=== PATIENT | male | born 1965 | race Caucasian/White ===

== ENCOUNTER 2022-11-21 12:51 | Inpatient (IN) | payer MEDICAID ==
[~2022-11-21] VITALS: Ht 170.2 cm; Wt 62.2 kg
[2022-11-21 13:45] LABS: Basophils # (auto) 0.1 10 ^3/uL (0-0.2); Basophils % (auto) 0.8 % (0.0-2.0); Eosinophils # (auto) 0.3 10 ^3/uL (0-0.8); Hemoglobin 9.5 g/dL (13.5-17.5); Monocytes # (auto) 0.4 10 ^3/uL (0-1.3); Nucleated Red Blood Cells % 0.1 %
[2022-11-21] MEDS ORDERED: ONDANSETRON HCL 4 MG/2 ML VIAL IV ONE (13:45)
[2022-11-21 13:46] LABS: Eosinophils % (auto) 4.4 % (0.0-7.0); Lymphocytes # (auto) 1.1 10 ^3/uL (0.4-5.4); Lymphocytes % (auto) 17.5 % (10.0-50.0); Mean Corpuscular Hgb Conc. 31.5 g/dL (32.0-36.0); Mean Corpuscular Volume 82.6 fL (80.0-100.0); Monocytes % (auto) 5.7 % (0.0-12.0); Neutrophils # (auto) 4.6 10 ^3/uL (1.6-8.6); Neutrophils % (auto) 71.6 % (37.0-80.0); Red Blood Cells 3.64 10^6/uL (4.5-5.90); Red Cell Distribution Width 18.9 % (11.8-14.3); White Blood Cell 6.4 10^3/uL (4.4-10.8)
[2022-11-21 14:10] LABS: Alanine Aminotransferase 18 U/L (7-40); Albumin 3.6 g/dL (3.2-4.8); Alkaline Phosphatase 109 U/L (46-116); Anion Gap 6.8 (5-15); Aspartate Aminotransferase 19 U/L (13-40); BUN/Creatinine Ratio 6.8 (10.0-20.0); Bilirubin, Total 0.4 mg/dL (0.2-1.0); Blood Urea Nitrogen 27 mg/dL (9-23); Calcium 8.4 mg/dL (8.5-10.1); Carbon Dioxide 33.2 mmol/L (20-30); Chloride 98 mmol/L (98-107); Glucose 166 mg/dL (74-106); Potassium 3.5 mmol/L (3.5-5.1); Sodium 138 mmol/L (136-145); Total Protein 7.6 g/dL (5.7-8.2)
[2022-11-21] MEDS ORDERED: ACETAMINOPHEN 325 MG TAB PO PRN (16:15)
[2022-11-21] MEDS ORDERED: HYDROcodone-ACET 5/325MG TAB PO PRN (16:15)
[2022-11-21] MEDS ORDERED: MORPHINE SULFATE INJ 2 MG/ml SYRG IV PRN (16:30)
[2022-11-21] MEDS ORDERED: DEXTROSE (50%) 50ML SYRG IV PRN (16:30)
[2022-11-21] MEDS ORDERED: NITROGLYCERIN 0.4 MG SL TAB SL PRN (16:30)
[2022-11-21] MEDS: InsuLIN REG 1unit/0.01ml Soln (100units/ml) SC SCH ×2 (19:08→22:32)
[2022-11-21] MEDS: ACCU-CHEK COMFORT CURVE STRIP VI SCH ×2 (19:08→22:32)
[2022-11-21] MEDS: SEVELAMER 800 MG TAB PO SCH (19:10)
[2022-11-21 19:55] VITALS: PULSE 68; RESP 13; O2SAT 96
[2022-11-21] MEDS: SODIUM CHLOR 0.9% PF (SALINE LOCK) 10ML VIAL/SYR IV SCH (22:30)
[2022-11-21] MEDS: hydrALAZINE HCL 20 MG/ML VL IV PRN (22:33)
[2022-11-22] MEDS: hydrALAZINE HCL 20 MG/ML VL IV PRN ×3 (02:34→21:02)
[2022-11-22] MEDS: SODIUM CHLOR 0.9% PF (SALINE LOCK) 10ML VIAL/SYR IV SCH ×3 (05:20→21:10)
[2022-11-22] MEDS: ACCU-CHEK COMFORT CURVE STRIP VI SCH ×4 (06:26→21:42)
[2022-11-22] MEDS: InsuLIN REG 1unit/0.01ml Soln (100units/ml) SC SCH ×4 (06:27→21:43)
[2022-11-22 06:41] LABS: Alanine Aminotransferase 18 U/L (7-40); Alkaline Phosphatase 110 U/L (46-116); Aspartate Aminotransferase 23 U/L (13-40); Blood Urea Nitrogen 33 mg/dL (9-23); Calcium 8.6 mg/dL (8.5-10.1); Chloride 100 mmol/L (98-107); Glucose 78 mg/dL (74-106); Potassium 3.5 mmol/L (3.5-5.1); Sodium 139 mmol/L (136-145)
[2022-11-22 06:42] LABS: Albumin 3.5 g/dL (3.2-4.8); Bilirubin, Total 0.3 mg/dL (0.2-1.0); Total Protein 7.4 g/dL (5.7-8.2)
[2022-11-22 07:16] LABS: Basophils # (auto) 0.1 10 ^3/uL (0-0.2); Eosinophils # (auto) 0.3 10 ^3/uL (0-0.8)
[2022-11-22 07:44] LABS: Basophils % (auto) 1.2 % (0.0-2.0); Eosinophils % (auto) 4.2 % (0.0-7.0); Hematocrit 27.8 % (41.0-53.0); Lymphocytes # (auto) 1.1 10 ^3/uL (0.4-5.4); Lymphocytes % (auto) 17.3 % (10.0-50.0); Mean Corpuscular Hemoglobin 26.6 pg (28.0-32.0); Mean Corpuscular Hgb Conc. 32.4 g/dL (32.0-36.0); Mean Corpuscular Volume 82.1 fL (80.0-100.0); Monocytes # (auto) 0.6 10 ^3/uL (0-1.3); Monocytes % (auto) 8.6 % (0.0-12.0); Neutrophils # (auto) 4.5 10 ^3/uL (1.6-8.6); Neutrophils % (auto) 68.7 % (37.0-80.0); Red Blood Cells 3.38 10^6/uL (4.5-5.90); Red Cell Distribution Width 19.4 % (11.8-14.3); White Blood Cell 6.5 10^3/uL (4.4-10.8)
[2022-11-22 08:00] VITALS: PULSE 6; RESP 12; O2SAT 100
[2022-11-22] MEDS: ONDANSETRON HCL 4 MG/2 ML VIAL IV PRN (08:43)
[2022-11-22] MEDS: B-COMPLEX W/ C & FOLIC ACID(NEPHROVITE TAB) PO SCH (08:44)
[2022-11-22] MEDS: SEVELAMER 800 MG TAB PO SCH ×3 (08:44→18:17)
[2022-11-22] MEDS: BUMETANIDE 1 MG TAB PO SCH ×2 (10:18→21:09)
[2022-11-22 17:05] VITALS: PULSE 67; RESP 18; O2SAT 98
[2022-11-22] MEDS ORDERED: CALC0.25 PO (17:42)
[2022-11-22] MEDS ORDERED: INSU100I4 SC (17:42)
[2022-11-22] MEDS ORDERED: LOSA50TA46 PO (17:42)
[2022-11-22] MEDS ORDERED: ERGO1CAP12 PO (17:42)
[2022-11-22] MEDS ORDERED: FURO80TA3 PO (17:42)
[2022-11-22] MEDS ORDERED: LABE100T4 PO (17:42)
[2022-11-22] MEDS ORDERED: SEVE800T10 PO (17:42)
[2022-11-22] MEDS ORDERED: ATOR40TA52 PO (17:42)
[2022-11-22] MEDS ORDERED: NIFE1TAB30 PO (17:42)
[2022-11-22] MEDS ORDERED: INSU100I70 SC (17:42)
[2022-11-22 20:00] VITALS: PULSE 67; PULSE 69; RESP 18; O2SAT 98
[2022-11-22 22:00] VITALS: BP 159/74; PULSE 67; RESP 18; TEMP 98.5; O2SAT 97
[2022-11-23] VITALS (7 sets, daily range): BP systolic 139–170; BP diastolic 66–79; PULSE 59–76; RESP 14–19; TEMP 97.6–98.9; O2SAT 95–100
[2022-11-23] MEDS: hydrALAZINE HCL 20 MG/ML VL IV PRN ×2 (03:52→19:10)
[2022-11-23] MEDS: ONDANSETRON HCL 4 MG/2 ML VIAL IV PRN ×2 (03:59→09:37)
[2022-11-23] MEDS: InsuLIN REG 1unit/0.01ml Soln (100units/ml) SC SCH ×4 (06:16→21:25)
[2022-11-23] MEDS: SODIUM CHLOR 0.9% PF (SALINE LOCK) 10ML VIAL/SYR IV SCH ×3 (06:16→21:25)
[2022-11-23] MEDS: ACCU-CHEK COMFORT CURVE STRIP VI SCH ×4 (06:17→21:25)
[2022-11-23 06:28] LABS: Alanine Aminotransferase 16 U/L (7-40); Albumin 3.2 g/dL (3.2-4.8); Alkaline Phosphatase 103 U/L (46-116); Aspartate Aminotransferase 18 U/L (13-40); BUN/Creatinine Ratio 7.3 (10.0-20.0); Bilirubin, Total 0.3 mg/dL (0.2-1.0); Blood Urea Nitrogen 40 mg/dL (9-23); Calcium 8.3 mg/dL (8.5-10.1); Chloride 98 mmol/L (98-107); Potassium 3.5 mmol/L (3.5-5.1); Sodium 136 mmol/L (136-145); Total Protein 6.9 g/dL (5.7-8.2)
[2022-11-23 06:33] LABS: Glucose 190 mg/dL (74-106)
[2022-11-23] MEDS ORDERED: SODIUM CHL 0.9% 1000 ML BAG XX ONE (07:00)
[2022-11-23] MEDS ORDERED: LACO100T3 PO (08:30)
[2022-11-23] MEDS: B-COMPLEX W/ C & FOLIC ACID(NEPHROVITE TAB) PO SCH (09:37)
[2022-11-23] MEDS: BUMETANIDE 1 MG TAB PO SCH ×2 (09:38→21:24)
[2022-11-23] MEDS: PANTOPRAZOLE 40 MG/10 ML VIAL INJ IV SCH (09:38)
[2022-11-23] MEDS: SEVELAMER 800 MG TAB PO SCH ×3 (09:38→18:17)
[2022-11-23 13:42] LABS: INR 1.06 (0.9-1.15); Partial Thromboplastin Time 26.6 SEC (24.5-34.5); Prothrombin Time 11.1 sec (9.3-11.8)
[2022-11-23] MEDS ORDERED: MIDAZOLAM HCL 5 MG/ML-1ML VIAL ONE (14:39)
[2022-11-23] MEDS ORDERED: SODIUM CHLORIDE LOCK 10 ML ONE (14:39)
[2022-11-23] MEDS ORDERED: LIDOCAINE VISCOUS 2% 15ML UD ONE (14:39)
[2022-11-23] MEDS ORDERED: fentaNYL CITRATE 100 MCG/2 ML VL ONE (14:40)
[2022-11-23] MEDS: diphenhdrAMINE HCL 50 MG/1 ML VL ONE ×2 (16:53→16:56)
[2022-11-23] MEDS ORDERED: METOCLOPRAMIDE HCL 5MG/ml INJ 2ml VIAL IV PRN (17:15)
[2022-11-24] VITALS (7 sets, daily range): BP systolic 139–180; BP diastolic 61–86; PULSE 74–77; RESP 16; TEMP 97.9–98.5; O2SAT 94–98
[2022-11-24] MEDS: hydrALAZINE HCL 20 MG/ML VL IV PRN ×2 (04:03→12:26)
[2022-11-24] MEDS: SODIUM CHLOR 0.9% PF (SALINE LOCK) 10ML VIAL/SYR IV SCH ×2 (06:28→17:31)
[2022-11-24] MEDS: ACCU-CHEK COMFORT CURVE STRIP VI SCH ×3 (06:29→17:29)
[2022-11-24] MEDS: InsuLIN REG 1unit/0.01ml Soln (100units/ml) SC SCH ×3 (06:29→17:33)
[2022-11-24] MEDS: SEVELAMER 800 MG TAB PO SCH ×3 (08:00→17:31)
[2022-11-24] MEDS: B-COMPLEX W/ C & FOLIC ACID(NEPHROVITE TAB) PO SCH (10:00)
[2022-11-24] MEDS: BUMETANIDE 1 MG TAB PO SCH (10:00)
[2022-11-24] MEDS: PANTOPRAZOLE 40 MG/10 ML VIAL INJ IV SCH (10:00)
[2022-11-24] MEDS ORDERED: SUCR1TAB22 OR (17:43)
[2022-11-24] MEDS ORDERED: PANT40TA2 PO (17:43)
[2022-11-24] MEDS ORDERED: ZOFR4T PO (17:45)
== END 2022-11-24 19:10 | disposition home or self-care (01) | DRG 241 ==
LOC: ER 12:51 → TELE 16:26 → TELE-WESTW 11-22 16:32
PROVIDERS: ADMIT Nurse Practitioner Family; ATTEND Nurse Practitioner Acute Care
PROC: 5A1D70Z Performance of Urinary Filtration, Intermittent, Less than 6 Hours Per Day (ICD-10-PCS; 2022-11-22)
PROC: 0DB68ZX Excision of Stomach, Via Natural or Artificial Opening Endoscopic, Diagnostic (ICD-10-PCS; 2022-11-23)
PROC: 0DB98ZX Excision of Duodenum, Via Natural or Artificial Opening Endoscopic, Diagnostic (ICD-10-PCS; principal; 2022-11-23 16:46)
DX: K29.70 Gastritis, unspecified, without bleeding (principal); I12.0 Hypertensive chronic kidney disease with stage 5 chronic kidney disease or end stage renal disease; E11.22 Type 2 diabetes mellitus with diabetic chronic kidney disease; D63.8 Anemia in other chronic diseases classified elsewhere; K44.9 Diaphragmatic hernia without obstruction or gangrene; E11.43 Type 2 diabetes mellitus with diabetic autonomic (poly)neuropathy; K31.84 Gastroparesis; N18.6 End stage renal disease; E11.65 Type 2 diabetes mellitus with hyperglycemia; Z79.899 Other long term (current) drug therapy; Z87.11 Personal history of peptic ulcer disease; Z99.2 Dependence on renal dialysis
CPT/HCPCS: 36415; 43239; 70450; 71045; 74176; 80053; 82962; 83036; 85025; 85610; 85730; 86850; 86900; 86901; 87340; 90935; 96374; C9113; G0378; J1642; J1815; J2250; J2405

== ENCOUNTER 2023-03-30 11:36 | Inpatient (IN) | payer MEDICAID ==
[~2023-03-30] VITALS: Ht 170.2 cm; Wt 58.0 kg
[~2023-03-30 11:36] MED LIST: ATOR40TA52 PO; CALC0.25 PO; ERGO1CAP12 PO; FURO80TA3 PO; INSU100I4 SC; INSU100I70 SC; LABE100T4 PO; LACO100T3 PO; LOSA50TA46 PO; NIFE1TAB30 PO; PANT40TA2 PO; SEVE800T10 PO; SUCR1TAB22 OR; ZOFR4T PO
[2023-03-30 12:16] LABS: Basophils # (auto) 0.1 10 ^3/uL (0-0.2); Basophils % (auto) 0.4 % (0.0-2.0); Eosinophils # (auto) 0.1 10 ^3/uL (0-0.8); Eosinophils % (auto) 0.4 % (0.0-7.0); Hemoglobin 14.5 g/dL (13.5-17.5); Lymphocytes # (auto) 1.5 10 ^3/uL (0.4-5.4); Lymphocytes % (auto) 9.5 % (10.0-50.0); Mean Corpuscular Hemoglobin 28.1 pg (28.0-32.0); Mean Corpuscular Hgb Conc. 32.2 g/dL (32.0-36.0); Mean Corpuscular Volume 87.3 fL (80.0-100.0); Monocytes # (auto) 1.1 10 ^3/uL (0-1.3); Monocytes % (auto) 7.4 % (0.0-12.0); Neutrophils # (auto) 12.6 10 ^3/uL (1.6-8.6); Neutrophils % (auto) 82.3 % (37.0-80.0); Nucleated Red Blood Cells % 0.1 %; Red Blood Cells 5.15 10^6/uL (4.5-5.90); Red Cell Distribution Width 14.8 % (11.8-14.3); White Blood Cell 15.3 10^3/uL (4.4-10.8)
[2023-03-30 12:30] LABS: Chloride 94 mmol/L (98-107); Potassium 2.9 mmol/L (3.5-5.1); Sodium 133 mmol/L (136-145)
[2023-03-30 12:31] LABS: Anion Gap 15 (5-15); Carbon Dioxide 24 mmol/L (20-30)
[2023-03-30 12:32] LABS: Calcium 8.4 mg/dL (8.7-10.4)
[2023-03-30 12:33] VITALS: O2SAT 95
[2023-03-30 12:36] LABS: Glucose 179 mg/dL (74-106)
[2023-03-30 12:37] LABS: BUN/Creatinine Ratio 9.6 (10.0-20.0); Blood Urea Nitrogen 39 mg/dL (9-23); Lipase 26 U/L (12-53)
[2023-03-30] MEDS ORDERED: MORPHINE SULFATE INJ 2 MG/ml SYRG IV PRN (12:45)
[2023-03-30] MEDS ORDERED: ONDANSETRON HCL 4 MG/2 ML VIAL IV PRN (12:45)
[2023-03-30] MEDS ORDERED: metroNIDAZOLE 500MG/100ML 100 ML IV ONE (12:45)
[2023-03-30] MEDS ORDERED: POTASSIUM EFFERVESENT TAB 25 MEQ PO ONE (12:45)
[2023-03-30] MEDS ORDERED: NITROGLYCERIN 0.4 MG SL TAB SL PRN (12:45)
[2023-03-30] MEDS ORDERED: DEXTROSE (50%) 50ML SYRG IV PRN (12:45)
[2023-03-30] MEDS ORDERED: PANTOPRAZOLE 40 MG/10 ML VIAL INJ IV ONE (13:00)
[2023-03-30] MEDS ORDERED: PIPERACILLIN-TAZOB 2.25GM 50 ML IV ONE (13:00)
[2023-03-30] MEDS ORDERED: METOCLOPRAMIDE HCL 5MG/ml INJ 2ml VIAL IV PRN (13:00)
[2023-03-30] MEDS ORDERED: DOCUSATE SOD 100 MG CAP PO ONE (13:00)
[2023-03-30] MEDS ORDERED: LACTULOSE 20Gm/30ML SOLN PO ONE (13:00)
[2023-03-30] MEDS: PIPERACILLIN-TAZOB 2.25GM 50 ML IV SCH (13:34)
[2023-03-30] MEDS: metroNIDAZOLE 500MG/100ML 100 ML IV SCH ×2 (13:34→21:05)
[2023-03-30] MEDS: InsuLIN REG 1unit/0.01ml Soln (100units/ml) SC SCH ×2 (16:27→23:01)
[2023-03-30] MEDS: ACCU-CHEK COMFORT CURVE STRIP VI SCH ×2 (16:27→22:48)
[2023-03-30] MEDS: SUCRALFATE 1 GM TAB PO SCH ×2 (18:05→23:01)
[2023-03-30] MEDS: SEVELAMER 800 MG TAB PO SCH (18:05)
[2023-03-30 20:00] VITALS: PULSE 93; RESP 15; O2SAT 95
[2023-03-30] MEDS: LACOSAMIDE 50 MG TAB PO SCH (23:01)
[2023-03-30] MEDS: DOCUSATE SOD 100 MG CAP PO SCH (23:02)
[2023-03-30] MEDS: ATORVASTATIN 20 MG TAB PO SCH (23:02)
[2023-03-30] MEDS: LOSARTAN POTASSIUM 50 MG TAB PO SCH (23:03)
[2023-03-30] MEDS: LABETALOL HCL 200 MG TAB PO SCH (23:04)
[2023-03-31] MEDS: PIPERACILLIN-TAZOB 2.25GM 50 ML IV SCH ×2 (01:21→13:47)
[2023-03-31] MEDS: metroNIDAZOLE 500MG/100ML 100 ML IV SCH ×3 (04:59→21:14)
[2023-03-31 06:13] LABS: Basophils # (auto) 0 10 ^3/uL (0-0.2); Basophils % (auto) 0.3 % (0.0-2.0); Eosinophils # (auto) 0.1 10 ^3/uL (0-0.8); Eosinophils % (auto) 0.4 % (0.0-7.0); Hematocrit 42.3 % (41.0-53.0); Hemoglobin 13.3 g/dL (13.5-17.5); Lymphocytes # (auto) 1.7 10 ^3/uL (0.4-5.4); Lymphocytes % (auto) 11.7 % (10.0-50.0); Mean Corpuscular Hemoglobin 27.8 pg (28.0-32.0); Mean Corpuscular Hgb Conc. 31.5 g/dL (32.0-36.0); Mean Corpuscular Volume 88.2 fL (80.0-100.0); Monocytes # (auto) 1.2 10 ^3/uL (0-1.3); Neutrophils # (auto) 11.6 10 ^3/uL (1.6-8.6); Neutrophils % (auto) 79.6 % (37.0-80.0); Nucleated Red Blood Cells % 0.2 %; Red Cell Distribution Width 14.9 % (11.8-14.3); White Blood Cell 14.6 10^3/uL (4.4-10.8)
[2023-03-31 06:20] LABS: Alanine Aminotransferase 11 U/L (7-40); Albumin 3.5 g/dL (3.2-4.8); Alkaline Phosphatase 82 U/L (46-116); Anion Gap 15 (5-15); Aspartate Aminotransferase 21 U/L (13-40); BUN/Creatinine Ratio 6.4 (10.0-20.0); Bilirubin, Total 0.5 mg/dL (0.2-1.0); Blood Urea Nitrogen 38 mg/dL (9-23); Calcium 8.4 mg/dL (8.7-10.4); Carbon Dioxide 27 mmol/L (20-30); Chloride 93 mmol/L (98-107); Glucose 156 mg/dL (74-106); Sodium 135 mmol/L (136-145)
[2023-03-31 06:21] LABS: Total Protein 7.2 g/dL (5.7-8.2)
[2023-03-31] MEDS: InsuLIN REG 1unit/0.01ml Soln (100units/ml) SC SCH ×4 (06:31→22:23)
[2023-03-31] MEDS: ACCU-CHEK COMFORT CURVE STRIP VI SCH ×4 (06:31→22:18)
[2023-03-31] MEDS: SUCRALFATE 1 GM TAB PO SCH ×4 (06:35→22:24)
[2023-03-31 07:26] VITALS: PULSE 78; RESP 14; O2SAT 96
[2023-03-31] MEDS: SEVELAMER 800 MG TAB PO SCH ×3 (08:33→18:34)
[2023-03-31] MEDS ORDERED: NIFEdipine ER 30 MG TAB PO SCH (10:00)
[2023-03-31] MEDS ORDERED: PANTOPRAZOLE 40 MG TAB PO SCH (10:00)
[2023-03-31] MEDS ORDERED: ERGOCALCIFEROL 50,000 UNIT(1.25MG) CAP PO SCH ×2 (10:00→14:00)
[2023-03-31] MEDS: DOCUSATE SOD 100 MG CAP PO SCH (10:27)
[2023-03-31] MEDS: PANTOPRAZOLE 40 MG/10 ML VIAL INJ IV SCH (10:27)
[2023-03-31] MEDS: LABETALOL HCL 200 MG TAB PO SCH ×2 (10:30→22:23)
[2023-03-31] MEDS: LOSARTAN POTASSIUM 50 MG TAB PO SCH (10:30)
[2023-03-31] MEDS: CALCITRIOL 0.25 MCG CAP PO SCH (10:31)
[2023-03-31] MEDS: FUROSEMIDE 40 MG TAB PO SCH (10:31)
[2023-03-31] MEDS: LACOSAMIDE 50 MG TAB PO SCH ×2 (10:32→22:23)
[2023-03-31] MEDS ORDERED: POTASSIUM EFFERVESENT TAB 25 MEQ PO ONE (11:45)
[2023-03-31 19:30] VITALS: PULSE 78; RESP 20; O2SAT 95
[2023-03-31] MEDS: ONDANSETRON HCL 4 MG/2 ML VIAL IV PRN (20:07)
[2023-03-31] MEDS: HYDROcodone-ACET 5/325MG TAB PO PRN (21:28)
[2023-03-31] MEDS: METOCLOPRAMIDE HCL 10 MG TAB PO SCH (21:28)
[2023-03-31] MEDS: ATORVASTATIN 20 MG TAB PO SCH (22:23)
[2023-03-31] MEDS: SENNA 8.6 MG TAB PO SCH (22:23)
[2023-03-31 22:42] LABS: COVID19 ANTIGEN SOFIA FIA NEGATIVE (NEGATIVE); Rapid Influenza A Negative (Negative); Rapid Influenza B Negative (Negative)
[2023-03-31 22:44] LABS: Respiratory Syncytial Virus Ag Negative
[2023-03-31 23:00] VITALS: PULSE 84
[2023-03-31 23:31] VITALS: BP 116/60; PULSE 77; RESP 18; TEMP 98.2; O2SAT 94
[2023-03-31 23:51] VITALS: BP 116/60; PULSE 77; RESP 18; TEMP 98.2; O2SAT 94
[2023-04-01] VITALS (8 sets, daily range): BP systolic 90–112; BP diastolic 45–63; PULSE 72–88; RESP 16–18; TEMP 97.7–98.8; O2SAT 94–100
[2023-04-01] MEDS: PIPERACILLIN-TAZOB 2.25GM 50 ML IV SCH ×2 (01:02→13:02)
[2023-04-01 05:03] LABS: Basophils # (auto) 0.1 10 ^3/uL (0-0.2); Basophils % (auto) 0.8 % (0.0-2.0); Eosinophils # (auto) 0.2 10 ^3/uL (0-0.8); Eosinophils % (auto) 2.7 % (0.0-7.0); Hematocrit 37.3 % (41.0-53.0); Hemoglobin 12.4 g/dL (13.5-17.5); Lymphocytes # (auto) 1.7 10 ^3/uL (0.4-5.4); Lymphocytes % (auto) 18.7 % (10.0-50.0); Mean Corpuscular Hemoglobin 29.2 pg (28.0-32.0); Mean Corpuscular Hgb Conc. 33.1 g/dL (32.0-36.0); Mean Corpuscular Volume 88.1 fL (80.0-100.0); Monocytes # (auto) 0.9 10 ^3/uL (0-1.3); Monocytes % (auto) 9.5 % (0.0-12.0); Neutrophils # (auto) 6.2 10 ^3/uL (1.6-8.6); Neutrophils % (auto) 68.3 % (37.0-80.0); Nucleated Red Blood Cells % 0.1 %; Red Blood Cells 4.23 10^6/uL (4.5-5.90); Red Cell Distribution Width 14.7 % (11.8-14.3)
[2023-04-01] MEDS: metroNIDAZOLE 500MG/100ML 100 ML IV SCH (05:09)
[2023-04-01 05:13] LABS: Anion Gap 16 (5-15); Carbon Dioxide 27 mmol/L (20-30); Chloride 93 mmol/L (98-107); Potassium 2.8 mmol/L (3.5-5.1); Sodium 136 mmol/L (136-145)
[2023-04-01 05:14] LABS: Calcium 8.1 mg/dL (8.7-10.4)
[2023-04-01 05:19] LABS: BUN/Creatinine Ratio 6.8 (10.0-20.0); Glucose 110 mg/dL (74-106)
[2023-04-01 05:20] LABS: Lipase 29 U/L (12-53)
[2023-04-01 05:25] LABS: Blood Urea Nitrogen 56 mg/dL (9-23)
[2023-04-01] MEDS: SUCRALFATE 1 GM TAB PO SCH ×4 (06:02→22:41)
[2023-04-01] MEDS: METOCLOPRAMIDE HCL 10 MG TAB PO SCH ×3 (06:02→22:41)
[2023-04-01] MEDS: InsuLIN REG 1unit/0.01ml Soln (100units/ml) SC SCH ×4 (06:05→22:00)
[2023-04-01] MEDS: ACCU-CHEK COMFORT CURVE STRIP VI SCH ×4 (06:05→21:39)
[2023-04-01] MEDS ORDERED: POTASSIUM EFFERVESENT TAB 25 MEQ PO ONE (07:15)
[2023-04-01] MEDS ORDERED: POTASSIUM CHL 20MEQ/100ML 100 ML IV ONE (07:15)
[2023-04-01] MEDS: SEVELAMER 800 MG TAB PO SCH ×3 (09:08→18:22)
[2023-04-01] MEDS: CALCITRIOL 0.25 MCG CAP PO SCH (09:21)
[2023-04-01] MEDS: SENNA 8.6 MG TAB PO SCH ×2 (09:21→21:39)
[2023-04-01] MEDS: FUROSEMIDE 40 MG TAB PO SCH (09:21)
[2023-04-01] MEDS: LACTULOSE 20Gm/30ML SOLN PO SCH ×2 (09:24→10:00)
[2023-04-01] MEDS: LACOSAMIDE 50 MG TAB PO SCH ×2 (09:24→21:39)
[2023-04-01] MEDS: PANTOPRAZOLE 40 MG/10 ML VIAL INJ IV SCH (09:25)
[2023-04-01] MEDS: LABETALOL HCL 200 MG TAB PO SCH (09:26)
[2023-04-01] MEDS ORDERED: NIFEdipine ER 30 MG TAB PO SCH (10:00)
[2023-04-01 10:05] LABS: Urine Epithelial Cast None Seen /hpf (<5)
[2023-04-01 10:19] LABS: Urine Bacteria FEW /hpf (None Seen); Urine Blood 2+ /uL (Negative); Urine Clarity HAZY (Clear); Urine Color Yellow (Yellow); Urine Protein, UAD 4+ (Negative); Urine Specific Gravity 1.028 (1.001-1.035); Urine Urobilinogen Normal (Negative); Urine WBC 8 /hpf (0 - 3)
[2023-04-01] MEDS: ONDANSETRON HCL 4 MG/2 ML VIAL IV PRN (13:01)
[2023-04-01] MEDS ORDERED: LACTULOSE 20Gm/30ML SOLN PO PRN (17:30)
[2023-04-01] MEDS: ATORVASTATIN 20 MG TAB PO SCH (22:39)
[2023-04-02] VITALS (8 sets, daily range): BP systolic 114–159; BP diastolic 55–90; PULSE 75–93; RESP 16–18; TEMP 97.7–98.9; O2SAT 95–100
[2023-04-02 05:04] LABS: Chloride 94 mmol/L (98-107); Potassium 3.5 mmol/L (3.5-5.1); Sodium 135 mmol/L (136-145)
[2023-04-02 05:05] LABS: Anion Gap 14 (5-15); Calcium 8.1 mg/dL (8.7-10.4); Carbon Dioxide 27 mmol/L (20-30)
[2023-04-02 05:10] LABS: BUN/Creatinine Ratio 6.4 (10.0-20.0); Blood Urea Nitrogen 64 mg/dL (9-23); Glucose 186 mg/dL (74-106)
[2023-04-02] MEDS: SUCRALFATE 1 GM TAB PO SCH ×3 (06:20→18:00)
[2023-04-02] MEDS: METOCLOPRAMIDE HCL 10 MG TAB PO SCH (06:20)
[2023-04-02] MEDS: InsuLIN REG 1unit/0.01ml Soln (100units/ml) SC SCH ×3 (06:21→17:00)
[2023-04-02] MEDS: ACCU-CHEK COMFORT CURVE STRIP VI SCH ×3 (06:21→17:17)
[2023-04-02] MEDS: CALCITRIOL 0.25 MCG CAP PO SCH (09:14)
[2023-04-02] MEDS: PANTOPRAZOLE 40 MG/10 ML VIAL INJ IV SCH (09:14)
[2023-04-02] MEDS: SEVELAMER 800 MG TAB PO SCH ×3 (09:16→18:00)
[2023-04-02] MEDS: FUROSEMIDE 40 MG TAB PO SCH (09:16)
[2023-04-02] MEDS: NIFEdipine ER 30 MG TAB PO SCH (09:18)
[2023-04-02] MEDS: SENNA 8.6 MG TAB PO SCH ×2 (09:35→22:00)
[2023-04-02] MEDS: LACOSAMIDE 50 MG TAB PO SCH ×2 (09:35→22:00)
[2023-04-02] MEDS: METOCLOPRAMIDE HCL 5MG/ml INJ 2ml VIAL IV SCH (13:02)
[2023-04-02] MEDS ORDERED: SUCR1TAB22 OR (14:46)
[2023-04-02] MEDS ORDERED: PANT40TA2 PO (14:46)
[2023-04-02] MEDS ORDERED: ZOFR4T PO (14:46)
[2023-04-03] VITALS (7 sets, daily range): BP systolic 142–165; BP diastolic 66–84; PULSE 71–90; RESP 18–20; TEMP 97.9–98.2; O2SAT 95–100
[2023-04-03] MEDS: ATORVASTATIN 20 MG TAB PO SCH ×2 (00:25→21:52)
[2023-04-03] MEDS: SUCRALFATE 1 GM TAB PO SCH ×5 (00:26→21:52)
[2023-04-03] MEDS: InsuLIN REG 1unit/0.01ml Soln (100units/ml) SC SCH ×5 (00:27→21:53)
[2023-04-03] MEDS: METOCLOPRAMIDE HCL 5MG/ml INJ 2ml VIAL IV SCH ×5 (01:51→12:05)
[2023-04-03 05:09] LABS: Basophils # (auto) 0.1 10 ^3/uL (0-0.2); Basophils % (auto) 0.9 % (0.0-2.0); Eosinophils # (auto) 0.3 10 ^3/uL (0-0.8); Eosinophils % (auto) 3.6 % (0.0-7.0); Hematocrit 38.9 % (41.0-53.0); Hemoglobin 12.5 g/dL (13.5-17.5); Lymphocytes # (auto) 1.8 10 ^3/uL (0.4-5.4); Lymphocytes % (auto) 21.8 % (10.0-50.0); Mean Corpuscular Hemoglobin 28.2 pg (28.0-32.0); Mean Corpuscular Hgb Conc. 32.1 g/dL (32.0-36.0); Monocytes # (auto) 0.8 10 ^3/uL (0-1.3); Monocytes % (auto) 9.9 % (0.0-12.0); Neutrophils # (auto) 5.2 10 ^3/uL (1.6-8.6); Neutrophils % (auto) 63.8 % (37.0-80.0); Nucleated Red Blood Cells % 0.1 %; Red Blood Cells 4.42 10^6/uL (4.5-5.90); Red Cell Distribution Width 14.9 % (11.8-14.3); White Blood Cell 8.1 10^3/uL (4.4-10.8)
[2023-04-03 05:25] LABS: Chloride 96 mmol/L (98-107); Potassium 3.7 mmol/L (3.5-5.1); Sodium 135 mmol/L (136-145)
[2023-04-03 05:26] LABS: Anion Gap 14 (5-15); Carbon Dioxide 25 mmol/L (20-30)
[2023-04-03 05:27] LABS: Calcium 8.4 mg/dL (8.5-10.1)
[2023-04-03 05:32] LABS: BUN/Creatinine Ratio 5.2 (10.0-20.0); Blood Urea Nitrogen 60 mg/dL (9-23); Glucose 102 mg/dL (74-106)
[2023-04-03] MEDS: ACCU-CHEK COMFORT CURVE STRIP VI SCH ×5 (07:09→21:52)
[2023-04-03] MEDS: PANTOPRAZOLE 40 MG/10 ML VIAL INJ IV SCH (09:44)
[2023-04-03] MEDS: CALCITRIOL 0.25 MCG CAP PO SCH (09:44)
[2023-04-03] MEDS: SEVELAMER 800 MG TAB PO SCH ×3 (09:44→17:27)
[2023-04-03] MEDS: NIFEdipine ER 30 MG TAB PO SCH (09:45)
[2023-04-03] MEDS: SENNA 8.6 MG TAB PO SCH (09:45)
[2023-04-03] MEDS: FUROSEMIDE 40 MG TAB PO SCH (09:45)
[2023-04-03] MEDS: LACOSAMIDE 50 MG TAB PO SCH (09:46)
[2023-04-04] VITALS (7 sets, daily range): BP systolic 126–147; BP diastolic 63–77; PULSE 82–90; RESP 2–22; TEMP 97.4–98.8; O2SAT 94–99
[2023-04-04] MEDS: ACCU-CHEK COMFORT CURVE STRIP VI SCH ×4 (06:10→21:53)
[2023-04-04] MEDS: SUCRALFATE 1 GM TAB PO SCH ×4 (06:10→21:52)
[2023-04-04] MEDS: InsuLIN REG 1unit/0.01ml Soln (100units/ml) SC SCH ×4 (06:11→21:54)
[2023-04-04] MEDS: SEVELAMER 800 MG TAB PO SCH ×3 (08:19→17:17)
[2023-04-04] MEDS: FUROSEMIDE 40 MG TAB PO SCH (09:24)
[2023-04-04] MEDS: NIFEdipine ER 30 MG TAB PO SCH (09:25)
[2023-04-04] MEDS: CALCITRIOL 0.25 MCG CAP PO SCH (09:25)
[2023-04-04] MEDS: HYDROcodone-ACET 5/325MG TAB PO PRN ×2 (17:17→21:52)
[2023-04-04] MEDS: ATORVASTATIN 20 MG TAB PO SCH (21:52)
[2023-04-05] VITALS (7 sets, daily range): BP systolic 112–192; BP diastolic 53–78; PULSE 82–93; RESP 16–19; TEMP 98–98.7; O2SAT 95–98
[2023-04-05] MEDS: HYDROcodone-ACET 5/325MG TAB PO PRN ×4 (04:34→22:38)
[2023-04-05] MEDS: ACCU-CHEK COMFORT CURVE STRIP VI SCH ×4 (06:14→21:43)
[2023-04-05] MEDS: SUCRALFATE 1 GM TAB PO SCH ×4 (06:14→21:43)
[2023-04-05] MEDS: InsuLIN REG 1unit/0.01ml Soln (100units/ml) SC SCH ×4 (06:18→21:45)
[2023-04-05] MEDS ORDERED: SODIUM CHL 0.9% 1000 ML BAG XX ONE (07:00)
[2023-04-05] MEDS: SEVELAMER 800 MG TAB PO SCH ×3 (08:26→18:07)
[2023-04-05] MEDS: CALCITRIOL 0.25 MCG CAP PO SCH (10:00)
[2023-04-05] MEDS: FUROSEMIDE 40 MG TAB PO SCH (10:00)
[2023-04-05] MEDS: NIFEdipine ER 30 MG TAB PO SCH (10:00)
[2023-04-05] MEDS ORDERED: EPOETIN ALFA-EPBX 10,000 UNIT/1ML VIAL SC ONE (21:00)
[2023-04-05] MEDS: ATORVASTATIN 20 MG TAB PO SCH (21:43)
[2023-04-06] VITALS (8 sets, daily range): BP systolic 114–122; BP diastolic 61–68; PULSE 71–95; RESP 16–19; TEMP 98.2–99.3; O2SAT 96–99
[2023-04-06] MEDS: SUCRALFATE 1 GM TAB PO SCH ×4 (05:58→22:04)
[2023-04-06] MEDS: ACCU-CHEK COMFORT CURVE STRIP VI SCH ×4 (06:21→22:05)
[2023-04-06] MEDS: InsuLIN REG 1unit/0.01ml Soln (100units/ml) SC SCH ×4 (06:26→22:10)
[2023-04-06] MEDS: HYDROcodone-ACET 5/325MG TAB PO PRN ×2 (06:27→22:05)
[2023-04-06] MEDS: SEVELAMER 800 MG TAB PO SCH ×3 (08:25→18:06)
[2023-04-06] MEDS: FUROSEMIDE 40 MG TAB PO SCH (10:14)
[2023-04-06] MEDS: CALCITRIOL 0.25 MCG CAP PO SCH (10:14)
[2023-04-06] MEDS: NIFEdipine ER 30 MG TAB PO SCH (10:15)
[2023-04-06] MEDS: ONDANSETRON HCL 4 MG/2 ML VIAL IV PRN (12:55)
[2023-04-06] MEDS: ATORVASTATIN 20 MG TAB PO SCH (22:04)
[2023-04-07] MEDS: InsuLIN REG 1unit/0.01ml Soln (100units/ml) SC SCH ×4 (05:54→21:43)
[2023-04-07] MEDS: ACCU-CHEK COMFORT CURVE STRIP VI SCH ×4 (05:55→21:41)
[2023-04-07] MEDS: SUCRALFATE 1 GM TAB PO SCH ×4 (06:04→21:38)
[2023-04-07 08:00] VITALS: PULSE 82; PULSE 84; RESP 18; O2SAT 98
[2023-04-07] MEDS: SEVELAMER 800 MG TAB PO SCH ×3 (08:21→17:19)
[2023-04-07 08:42] VITALS: BP 127/68; PULSE 83; RESP 17; TEMP 98.6; O2SAT 97
[2023-04-07] MEDS: CALCITRIOL 0.25 MCG CAP PO SCH (11:16)
[2023-04-07] MEDS: FUROSEMIDE 40 MG TAB PO SCH (11:17)
[2023-04-07] MEDS: NIFEdipine ER 30 MG TAB PO SCH (11:17)
[2023-04-07 13:01] VITALS: BP 137/76; PULSE 89; RESP 17; TEMP 98.1; O2SAT 98
[2023-04-07 13:30] LABS: Chloride 96 mmol/L (98-107); Potassium 4.8 mmol/L (3.5-5.1); Sodium 133 mmol/L (136-145)
[2023-04-07 13:31] LABS: Anion Gap 12 (5-15); Calcium 8.7 mg/dL (8.5-10.1); Carbon Dioxide 25 mmol/L (20-30)
[2023-04-07 13:36] LABS: BUN/Creatinine Ratio 5.3 (10.0-20.0); Blood Urea Nitrogen 54 mg/dL (9-23)
[2023-04-07 13:50] LABS: Glucose 215 mg/dL (74-106)
[2023-04-07 14:55] LABS: Basophils # (auto) 0.2 10 ^3/uL (0-0.2); Basophils % (auto) 1.8 % (0.0-2.0); Eosinophils # (auto) 0.2 10 ^3/uL (0-0.8); Eosinophils % (auto) 2.2 % (0.0-7.0); Hematocrit 41.3 % (41.0-53.0); Hemoglobin 13.1 g/dL (13.5-17.5); Lymphocytes # (auto) 1.2 10 ^3/uL (0.4-5.4); Lymphocytes % (auto) 13.9 % (10.0-50.0); Mean Corpuscular Hemoglobin 27.9 pg (28.0-32.0); Mean Corpuscular Hgb Conc. 31.8 g/dL (32.0-36.0); Mean Corpuscular Volume 87.9 fL (80.0-100.0); Monocytes # (auto) 0.7 10 ^3/uL (0-1.3); Monocytes % (auto) 8.4 % (0.0-12.0); Neutrophils # (auto) 6.4 10 ^3/uL (1.6-8.6); Neutrophils % (auto) 73.7 % (37.0-80.0); Red Cell Distribution Width 14.7 % (11.8-14.3); White Blood Cell 8.7 10^3/uL (4.4-10.8)
[2023-04-07 16:23] VITALS: BP 108/61; PULSE 77; RESP 17; TEMP 98.1; O2SAT 98
[2023-04-07 20:00] VITALS: PULSE 84
[2023-04-07] MEDS: ATORVASTATIN 20 MG TAB PO SCH (21:38)
[2023-04-07 22:00] VITALS: BP 109/63; PULSE 87; RESP 17; TEMP 98.3; O2SAT 98
[2023-04-08] VITALS (7 sets, daily range): BP systolic 103–155; BP diastolic 53–79; PULSE 57–92; RESP 14–18; TEMP 97.9–98.6; O2SAT 98–100
[2023-04-08] MEDS: ACCU-CHEK COMFORT CURVE STRIP VI SCH ×4 (05:51→20:51)
[2023-04-08] MEDS: SUCRALFATE 1 GM TAB PO SCH ×4 (05:51→21:07)
[2023-04-08] MEDS: InsuLIN REG 1unit/0.01ml Soln (100units/ml) SC SCH ×4 (06:07→21:02)
[2023-04-08] MEDS ORDERED: SODIUM CHL 0.9% 1000 ML BAG XX ONE (07:00)
[2023-04-08] MEDS: SEVELAMER 800 MG TAB PO SCH ×3 (08:00→17:48)
[2023-04-08 13:58] LABS: Hepatitis B Core Total AB Negative (Negative)
[2023-04-08] MEDS: CALCITRIOL 0.25 MCG CAP PO SCH (16:24)
[2023-04-08] MEDS: NIFEdipine ER 30 MG TAB PO SCH (16:24)
[2023-04-08] MEDS: FUROSEMIDE 40 MG TAB PO SCH (16:25)
[2023-04-08 16:59] LABS: Hepatitis A Total Antibody Positive (Negative)
[2023-04-08 17:00] LABS: Hepatitis B Core IgM Negative
[2023-04-08 17:01] LABS: Hepatitis B Surface Antibody Negative (Negative); Hepatitis B Surface Antigen Negative (Negative); Hepatitis C Antibody Negative (Negative)
[2023-04-08] MEDS ORDERED: EPOETIN ALFA-EPBX 10,000 UNIT/1ML VIAL SC ONE (21:00)
[2023-04-08] MEDS: ATORVASTATIN 20 MG TAB PO SCH (21:07)
[2023-04-09] VITALS (10 sets, daily range): BP systolic 125–138; BP diastolic 66–78; PULSE 81–88; RESP 11–18; TEMP 98–98.5; O2SAT 97–100
[2023-04-09 05:38] LABS: Partial Thromboplastin Time 25.6 SEC (24.5-34.5); Prothrombin Time 10.5 sec (9.3-11.8)
[2023-04-09] MEDS: SUCRALFATE 1 GM TAB PO SCH ×4 (05:48→23:17)
[2023-04-09] MEDS: ACCU-CHEK COMFORT CURVE STRIP VI SCH ×4 (06:54→23:17)
[2023-04-09] MEDS: InsuLIN REG 1unit/0.01ml Soln (100units/ml) SC SCH ×4 (06:55→22:00)
[2023-04-09 07:03] LABS: Basophils # (auto) 0.1 10 ^3/uL (0-0.2); Basophils % (auto) 0.9 % (0.0-2.0); Eosinophils # (auto) 0.2 10 ^3/uL (0-0.8); Eosinophils % (auto) 2.4 % (0.0-7.0); Hematocrit 39.6 % (41.0-53.0); Hemoglobin 12.9 g/dL (13.5-17.5); Lymphocytes # (auto) 1.5 10 ^3/uL (0.4-5.4); Lymphocytes % (auto) 19.5 % (10.0-50.0); Mean Corpuscular Hemoglobin 28.6 pg (28.0-32.0); Mean Corpuscular Hgb Conc. 32.6 g/dL (32.0-36.0); Mean Corpuscular Volume 87.6 fL (80.0-100.0); Monocytes % (auto) 12.6 % (0.0-12.0); Neutrophils # (auto) 5.1 10 ^3/uL (1.6-8.6); Neutrophils % (auto) 64.6 % (37.0-80.0); Nucleated Red Blood Cells % 0.2 %; Red Blood Cells 4.52 10^6/uL (4.5-5.90); Red Cell Distribution Width 14.9 % (11.8-14.3); White Blood Cell 7.8 10^3/uL (4.4-10.8)
[2023-04-09 07:05] LABS: Anion Gap 10 (5-15); Calcium 9.4 mg/dL (8.5-10.1); Carbon Dioxide 25 mmol/L (20-30); Chloride 101 mmol/L (98-107); Potassium 4.3 mmol/L (3.5-5.1); Sodium 136 mmol/L (136-145)
[2023-04-09 07:11] LABS: BUN/Creatinine Ratio 3.8 (10.0-20.0); Glucose 194 mg/dL (74-106)
[2023-04-09 07:13] LABS: Blood Urea Nitrogen 31 mg/dL (9-23)
[2023-04-09] MEDS: SEVELAMER 800 MG TAB PO SCH ×3 (08:00→17:47)
[2023-04-09] MEDS ORDERED: LIDOCAINE VISCOUS 2% 15ML UD ONE (09:14)
[2023-04-09] MEDS ORDERED: SODIUM CHLORIDE LOCK 10 ML ONE (09:14)
[2023-04-09] MEDS: FUROSEMIDE 40 MG TAB PO SCH (09:33)
[2023-04-09] MEDS: NIFEdipine ER 30 MG TAB PO SCH (09:33)
[2023-04-09] MEDS: CALCITRIOL 0.25 MCG CAP PO SCH (09:33)
[2023-04-09] MEDS: MIDAZOLAM HCL 5 MG/ML-1ML VIAL ONE ×2 (11:21→11:24)
[2023-04-09] MEDS: fentaNYL CITRATE 100 MCG/2 ML VL ONE ×2 (11:21→11:24)
[2023-04-09] MEDS: diphenhdrAMINE HCL 50 MG/1 ML VL ONE ×3 (11:22→11:32)
[2023-04-09] MEDS ORDERED: GOLYTELY 4L KIT PO ONE (11:45)
[2023-04-09] MEDS: NYSTATIN (MOUTH-THROAT) 500,000 UNITS/5 ML SUSP MT SCH ×2 (17:47→23:17)
[2023-04-09] MEDS: ATORVASTATIN 20 MG TAB PO SCH (23:17)
[2023-04-10] VITALS (8 sets, daily range): BP systolic 103–164; BP diastolic 71–86; PULSE 84–98; RESP 16–18; TEMP 97.5–98.4; O2SAT 97–100
[2023-04-10] MEDS ORDERED: GOLYTELY 4L KIT PO ONE (06:00)
[2023-04-10] MEDS ORDERED: MAGNESIUM CITRATE SOLUTION 300 ML BTL PO ONE (06:00)
[2023-04-10] MEDS: NYSTATIN (MOUTH-THROAT) 500,000 UNITS/5 ML SUSP MT SCH ×4 (06:25→22:56)
[2023-04-10] MEDS: SUCRALFATE 1 GM TAB PO SCH ×4 (06:25→22:56)
[2023-04-10] MEDS: ACCU-CHEK COMFORT CURVE STRIP VI SCH ×4 (06:26→22:56)
[2023-04-10] MEDS: InsuLIN REG 1unit/0.01ml Soln (100units/ml) SC SCH ×4 (06:29→22:00)
[2023-04-10] MEDS ORDERED: SODIUM CHL 0.9% 1000 ML BAG XX ONE (07:00)
[2023-04-10] MEDS: SEVELAMER 800 MG TAB PO SCH ×3 (08:00→18:16)
[2023-04-10] MEDS: FUROSEMIDE 40 MG TAB PO SCH (09:21)
[2023-04-10] MEDS: NIFEdipine ER 30 MG TAB PO SCH (09:22)
[2023-04-10] MEDS: CALCITRIOL 0.25 MCG CAP PO SCH (09:23)
[2023-04-10] MEDS ORDERED: PROPOFOL 10 MG/ML 20 ML IV ONE (11:30)
[2023-04-10] MEDS ORDERED: MIDAZOLAM HCL 2MG/2ML 2ml VIAL (1mg/ml) ONE (11:30)
[2023-04-10] MEDS ORDERED: ONDANSETRON HCL 4 MG/2 ML VIAL IV PRN (12:15)
[2023-04-10] MEDS ORDERED: ACCU-CHEK COMFORT CURVE STRIP VI ONE (12:15)
[2023-04-10] MEDS: ATORVASTATIN 20 MG TAB PO SCH (22:56)
[2023-04-11] VITALS (8 sets, daily range): BP systolic 108–159; BP diastolic 60–90; PULSE 62–95; RESP 16–17; TEMP 97.7–98.2; O2SAT 98–100
[2023-04-11 06:39] LABS: Albumin 3.3 g/dL (3.2-4.8); Alkaline Phosphatase 68 U/L (46-116); Anion Gap 10 (5-15); Aspartate Aminotransferase 14 U/L (13-40); Calcium 8.3 mg/dL (8.7-10.4); Carbon Dioxide 21 mmol/L (20-30); Chloride 104 mmol/L (98-107); Glucose 137 mg/dL (74-106); Magnesium 2.6 mg/dL (1.6-2.6); Potassium 4.9 mmol/L (3.5-5.1); Sodium 135 mmol/L (136-145)
[2023-04-11 06:41] LABS: Alanine Aminotransferase < 9 U/L (7-40); BUN/Creatinine Ratio 2.6 (10.0-20.0); Blood Urea Nitrogen 20 mg/dL (9-23)
[2023-04-11 06:43] LABS: Bilirubin, Total 0.2 mg/dL (0.2-1.0)
[2023-04-11] MEDS: ACCU-CHEK COMFORT CURVE STRIP VI SCH ×4 (06:46→21:13)
[2023-04-11] MEDS: SUCRALFATE 1 GM TAB PO SCH ×4 (06:46→21:13)
[2023-04-11] MEDS: NYSTATIN (MOUTH-THROAT) 500,000 UNITS/5 ML SUSP MT SCH ×4 (06:46→21:13)
[2023-04-11] MEDS: InsuLIN REG 1unit/0.01ml Soln (100units/ml) SC SCH ×4 (06:53→21:14)
[2023-04-11] MEDS: SEVELAMER 800 MG TAB PO SCH ×3 (07:53→17:30)
[2023-04-11] MEDS: FUROSEMIDE 40 MG TAB PO SCH (09:05)
[2023-04-11] MEDS: NIFEdipine ER 30 MG TAB PO SCH (09:05)
[2023-04-11] MEDS: CALCITRIOL 0.25 MCG CAP PO SCH (09:06)
[2023-04-11] MEDS: ATORVASTATIN 20 MG TAB PO SCH (21:13)
[2023-04-12] VITALS (8 sets, daily range): BP systolic 104–134; BP diastolic 56–76; PULSE 76–83; RESP 16–18; TEMP 97.5–98; O2SAT 98–100
[2023-04-12] MEDS: NYSTATIN (MOUTH-THROAT) 500,000 UNITS/5 ML SUSP MT SCH ×4 (05:39→21:44)
[2023-04-12] MEDS: ACCU-CHEK COMFORT CURVE STRIP VI SCH ×4 (05:39→21:48)
[2023-04-12] MEDS: SUCRALFATE 1 GM TAB PO SCH ×4 (05:39→21:44)
[2023-04-12] MEDS: InsuLIN REG 1unit/0.01ml Soln (100units/ml) SC SCH ×4 (05:48→21:48)
[2023-04-12] MEDS: SEVELAMER 800 MG TAB PO SCH ×3 (07:58→17:55)
[2023-04-12] MEDS: NIFEdipine ER 30 MG TAB PO SCH (10:05)
[2023-04-12] MEDS: FUROSEMIDE 40 MG TAB PO SCH (10:06)
[2023-04-12] MEDS: CALCITRIOL 0.25 MCG CAP PO SCH (10:06)
[2023-04-12] MEDS: ATORVASTATIN 20 MG TAB PO SCH (21:44)
[2023-04-13] VITALS (8 sets, daily range): BP systolic 79–134; BP diastolic 39–71; PULSE 57–85; RESP 16–20; TEMP 97.8–99; O2SAT 96–100
[2023-04-13] MEDS: SUCRALFATE 1 GM TAB PO SCH ×4 (05:46→21:43)
[2023-04-13] MEDS: NYSTATIN (MOUTH-THROAT) 500,000 UNITS/5 ML SUSP MT SCH ×4 (05:47→21:43)
[2023-04-13] MEDS: ACCU-CHEK COMFORT CURVE STRIP VI SCH ×4 (05:47→21:43)
[2023-04-13] MEDS: InsuLIN REG 1unit/0.01ml Soln (100units/ml) SC SCH ×4 (06:50→21:44)
[2023-04-13] MEDS: SEVELAMER 800 MG TAB PO SCH ×3 (08:47→17:24)
[2023-04-13] MEDS: NIFEdipine ER 30 MG TAB PO SCH (08:48)
[2023-04-13] MEDS: FUROSEMIDE 40 MG TAB PO SCH (08:48)
[2023-04-13] MEDS: CALCITRIOL 0.25 MCG CAP PO SCH (08:49)
[2023-04-13] MEDS: ATORVASTATIN 20 MG TAB PO SCH (21:43)
[2023-04-14] VITALS (8 sets, daily range): BP systolic 123–147; BP diastolic 67–80; PULSE 61–82; RESP 15–18; TEMP 97.8–98.1; O2SAT 99–100
[2023-04-14] MEDS: SUCRALFATE 1 GM TAB PO SCH ×4 (05:51→21:59)
[2023-04-14] MEDS: ACCU-CHEK COMFORT CURVE STRIP VI SCH ×4 (05:51→21:59)
[2023-04-14] MEDS: NYSTATIN (MOUTH-THROAT) 500,000 UNITS/5 ML SUSP MT SCH ×4 (05:51→21:59)
[2023-04-14] MEDS: InsuLIN REG 1unit/0.01ml Soln (100units/ml) SC SCH ×4 (05:53→22:01)
[2023-04-14] MEDS: SEVELAMER 800 MG TAB PO SCH ×3 (09:01→12:03)
[2023-04-14] MEDS: CALCITRIOL 0.25 MCG CAP PO SCH (09:02)
[2023-04-14] MEDS: FUROSEMIDE 40 MG TAB PO SCH (09:02)
[2023-04-14] MEDS: NIFEdipine ER 30 MG TAB PO SCH (10:00)
[2023-04-14] MEDS: ATORVASTATIN 20 MG TAB PO SCH (21:59)
[2023-04-15] VITALS (7 sets, daily range): BP systolic 137–171; BP diastolic 67–88; PULSE 58–85; RESP 18–21; TEMP 97.8–98.7; O2SAT 95–100
[2023-04-15] MEDS: NYSTATIN (MOUTH-THROAT) 500,000 UNITS/5 ML SUSP MT SCH ×4 (06:24→21:22)
[2023-04-15] MEDS: SUCRALFATE 1 GM TAB PO SCH ×4 (06:25→21:22)
[2023-04-15] MEDS: ACCU-CHEK COMFORT CURVE STRIP VI SCH ×4 (06:25→21:21)
[2023-04-15] MEDS: InsuLIN REG 1unit/0.01ml Soln (100units/ml) SC SCH ×4 (06:25→21:26)
[2023-04-15] MEDS ORDERED: SODIUM CHL 0.9% 1000 ML BAG XX ONE (07:00)
[2023-04-15] MEDS: SEVELAMER 800 MG TAB PO SCH ×4 (08:00→17:38)
[2023-04-15] MEDS: NIFEdipine ER 30 MG TAB PO SCH (10:00)
[2023-04-15] MEDS: CALCITRIOL 0.25 MCG CAP PO SCH (10:00)
[2023-04-15] MEDS: FUROSEMIDE 40 MG TAB PO SCH (10:26)
[2023-04-15 13:12] LABS: Basophils # (auto) 0.1 10 ^3/uL (0-0.2); Basophils % (auto) 1.3 % (0.0-2.0); Eosinophils # (auto) 0.1 10 ^3/uL (0-0.8); Eosinophils % (auto) 1.5 % (0.0-7.0); Hematocrit 39.5 % (41.0-53.0); Hemoglobin 12.7 g/dL (13.5-17.5); Lymphocytes # (auto) 1.5 10 ^3/uL (0.4-5.4); Lymphocytes % (auto) 22.1 % (10.0-50.0); Mean Corpuscular Hemoglobin 27.9 pg (28.0-32.0); Mean Corpuscular Hgb Conc. 32.1 g/dL (32.0-36.0); Mean Corpuscular Volume 86.9 fL (80.0-100.0); Monocytes # (auto) 0.3 10 ^3/uL (0-1.3); Monocytes % (auto) 5.1 % (0.0-12.0); Neutrophils # (auto) 4.8 10 ^3/uL (1.6-8.6); Nucleated Red Blood Cells % 0.1 %; Red Blood Cells 4.54 10^6/uL (4.5-5.90); Red Cell Distribution Width 14.7 % (11.8-14.3); White Blood Cell 6.8 10^3/uL (4.4-10.8)
[2023-04-15 13:31] LABS: Alanine Aminotransferase 14 U/L (7-40); Albumin 3.6 g/dL (3.2-4.8); Alkaline Phosphatase 95 U/L (46-116); Anion Gap 8 (5-15); Aspartate Aminotransferase 19 U/L (13-40); BUN/Creatinine Ratio 5.4 (10.0-20.0); Blood Urea Nitrogen 55 mg/dL (9-23); Calcium 9.1 mg/dL (8.5-10.1); Carbon Dioxide 22 mmol/L (20-30); Chloride 100 mmol/L (98-107); Glucose 231 mg/dL (74-106); Potassium 4.9 mmol/L (3.5-5.1)
[2023-04-15 13:32] LABS: Bilirubin, Total 0.2 mg/dL (0.2-1.0); Total Protein 7.5 g/dL (5.7-8.2)
[2023-04-15 13:39] LABS: Sodium 130 mmol/L (136-145)
[2023-04-15] MEDS: ATORVASTATIN 20 MG TAB PO SCH (21:22)
[2023-04-16 05:06] VITALS: BP 139/67; PULSE 85; RESP 19; TEMP 98.8; O2SAT 99
[2023-04-16] MEDS: ACCU-CHEK COMFORT CURVE STRIP VI SCH ×2 (06:13→11:41)
[2023-04-16] MEDS: NYSTATIN (MOUTH-THROAT) 500,000 UNITS/5 ML SUSP MT SCH ×2 (06:13→12:01)
[2023-04-16] MEDS: SUCRALFATE 1 GM TAB PO SCH ×2 (06:13→12:02)
[2023-04-16] MEDS: InsuLIN REG 1unit/0.01ml Soln (100units/ml) SC SCH ×2 (06:20→11:46)
[2023-04-16 08:00] VITALS: PULSE 76; PULSE 87; RESP 18; O2SAT 96
[2023-04-16] MEDS: SEVELAMER 800 MG TAB PO SCH ×2 (08:12→12:00)
[2023-04-16 09:00] VITALS: BP 119/70; PULSE 85; RESP 18; TEMP 98.5; O2SAT 99
[2023-04-16] MEDS: FUROSEMIDE 40 MG TAB PO SCH (09:31)
[2023-04-16] MEDS: CALCITRIOL 0.25 MCG CAP PO SCH (09:31)
[2023-04-16] MEDS: NIFEdipine ER 30 MG TAB PO SCH (09:32)
[2023-04-16 10:53] VITALS: BP 121/64; PULSE 87; RESP 18; TEMP 98.4; O2SAT 94
[2023-04-16 13:00] VITALS: BP 142/73; PULSE 88; RESP 16; TEMP 97.9; O2SAT 99
== END 2023-04-16 16:40 | DRG 48 ==
LOC: EDBD 11:36 → ER 11:36 → TELE 12:38 → TELE-CENTR 03-31 22:50
PROVIDERS: ADMIT Nurse Practitioner Family; ATTEND Hospitalist
PROC: 5A1D70Z Performance of Urinary Filtration, Intermittent, Less than 6 Hours Per Day (ICD-10-PCS; 2023-04-03)
PROC: 5A1D70Z Performance of Urinary Filtration, Intermittent, Less than 6 Hours Per Day (ICD-10-PCS; 2023-04-05)
PROC: 5A1D70Z Performance of Urinary Filtration, Intermittent, Less than 6 Hours Per Day (ICD-10-PCS; 2023-04-08)
PROC: 0DB78ZX Excision of Stomach, Pylorus, Via Natural or Artificial Opening Endoscopic, Diagnostic (ICD-10-PCS; 2023-04-09)
PROC: 0DB18ZX Excision of Upper Esophagus, Via Natural or Artificial Opening Endoscopic, Diagnostic (ICD-10-PCS; 2023-04-09)
PROC: 0DB38ZX Excision of Lower Esophagus, Via Natural or Artificial Opening Endoscopic, Diagnostic (ICD-10-PCS; 2023-04-09)
PROC: 0DB98ZX Excision of Duodenum, Via Natural or Artificial Opening Endoscopic, Diagnostic (ICD-10-PCS; principal; 2023-04-09 11:15)
PROC: 0DBK8ZZ Excision of Ascending Colon, Via Natural or Artificial Opening Endoscopic (ICD-10-PCS; 2023-04-10)
PROC: 0DBL8ZZ Excision of Transverse Colon, Via Natural or Artificial Opening Endoscopic (ICD-10-PCS; 2023-04-10)
PROC: 0DBN8ZZ Excision of Sigmoid Colon, Via Natural or Artificial Opening Endoscopic (ICD-10-PCS; 2023-04-10)
PROC: 5A1D70Z Performance of Urinary Filtration, Intermittent, Less than 6 Hours Per Day (ICD-10-PCS; 2023-04-10)
PROC: 5A1D70Z Performance of Urinary Filtration, Intermittent, Less than 6 Hours Per Day (ICD-10-PCS; 2023-04-12)
PROC: 5A1D70Z Performance of Urinary Filtration, Intermittent, Less than 6 Hours Per Day (ICD-10-PCS; 2023-04-15)
DX: E11.43 Type 2 diabetes mellitus with diabetic autonomic (poly)neuropathy (principal); I12.0 Hypertensive chronic kidney disease with stage 5 chronic kidney disease or end stage renal disease; K22.10 Ulcer of esophagus without bleeding; D63.8 Anemia in other chronic diseases classified elsewhere; N18.6 End stage renal disease; E11.22 Type 2 diabetes mellitus with diabetic chronic kidney disease; K29.70 Gastritis, unspecified, without bleeding; K57.30 Diverticulosis of large intestine without perforation or abscess without bleeding; K64.8 Other hemorrhoids; K31.84 Gastroparesis; N25.81 Secondary hyperparathyroidism of renal origin; E11.65 Type 2 diabetes mellitus with hyperglycemia; E78.5 Hyperlipidemia, unspecified; E87.6 Hypokalemia; K44.9 Diaphragmatic hernia without obstruction or gangrene; N20.0 Calculus of kidney; Z20.822 Contact with and (suspected) exposure to COVID-19; K63.5 Polyp of colon; R13.10 Dysphagia, unspecified; K21.9 Gastro-esophageal reflux disease without esophagitis; Z79.899 Other long term (current) drug therapy; Z79.4 Long term (current) use of insulin; Z83.3 Family history of diabetes mellitus; Z99.2 Dependence on renal dialysis; Z80.42 Family history of malignant neoplasm of prostate
CPT/HCPCS: 36415; 43239; 45385; 71045; 74018; 74176; 80048; 80053; 81001; 82270; 82962; 83036; 83690; 83735; 83880; 84484; 85018; 85025; 85610; 85730; 86704; 86705; 86706; 86708; 86803; 87040; 87045; 87340; 87426; 87804; 87807; 90935; 93005; 97110; 97116; 97163; 97530; C9113; G0378; J1642; J1815; J2250; J2405; J2543; J2704; J3480; J3490